=== PATIENT | male | born 1950 | race Caucasian/White ===

== ENCOUNTER 2024-02-04 09:31 | Day surgery (SDC) | payer MEDICARE, OTHER ==
[~2024-02-04 09:31] MED LIST: Lactated Ringers 1,000 ML IV SCH
[2024-02-04] MEDS: Lactated Ringers 1,000 ML IV SCH (09:48)
[2024-02-04] MEDS ORDERED: Propofol 200 MG/20 ML SDV ONE (11:04)
[2024-02-04] MEDS ORDERED: fentaNYL 100 MCG/2 ML SDV ONE (11:05)
== END 2024-02-04 13:35 | disposition home or self-care (01) ==
LOC: VM.SDS 09:31
PROVIDERS: ATTEND Family Medicine
DX: Z12.11 Encounter for screening for malignant neoplasm of colon (principal); D12.6 Benign neoplasm of colon, unspecified; K57.30 Diverticulosis of large intestine without perforation or abscess without bleeding; K64.9 Unspecified hemorrhoids; Z80.0 Family history of malignant neoplasm of digestive organs; I10 Essential (primary) hypertension; E78.00 Pure hypercholesterolemia, unspecified; C61 Malignant neoplasm of prostate; M10.9 Gout, unspecified; Z79.82 Long term (current) use of aspirin; Z79.899 Other long term (current) drug therapy
CPT/HCPCS: 00811; 88305; J2704; J3010; J7120